=== PATIENT | female | born 1975 | race Caucasian/White ===

== ENCOUNTER 2021-11-20 08:01 | Emergency (ER) | payer SELFPAY | END 2021-11-20 10:00 | disposition home or self-care (01) | LOC: CSHERS 08:01 | DX: R51.9 Headache, unspecified (principal); L73.9 Follicular disorder, unspecified; H61.21 Impacted cerumen, right ear; F17.210 Nicotine dependence, cigarettes, uncomplicated | CPT/HCPCS: 96365; 96375; J1200; J1885; J2765 ==

== ENCOUNTER 2023-02-17 15:24 | Outpatient (CLI) | payer BC | END 2023-02-17 15:25 | disposition home or self-care (01) | LOC: CSHMAMMO 15:24 | PROVIDERS: ATTEND Family Medicine | DX: Z12.31 Encounter for screening mammogram for malignant neoplasm of breast (principal); N64.89 Other specified disorders of breast; Z80.3 Family history of malignant neoplasm of breast | CPT/HCPCS: 77063; 77067 ==

== ENCOUNTER 2023-02-26 13:30 | Outpatient (CLI) | payer BC | END 2023-02-26 13:31 | disposition home or self-care (01) | LOC: CSHMAMMO 13:30 | PROVIDERS: ATTEND Family Medicine | DX: N64.89 Other specified disorders of breast (principal); N60.02 Solitary cyst of left breast | CPT/HCPCS: G0279 ==